=== PATIENT | male | born 1955 | race Caucasian/White ===

== ENCOUNTER 2025-01-16 11:26 | Emergency (ER) | payer OTHER ==
[2025-01-16] MEDS ORDERED: Lidocaine 1% (PF) 30 ML VIAL ONE (12:03)
[2025-01-16] MEDS ORDERED: Naproxen 500 MG TAB ONE (12:03)
== END 2025-01-16 13:18 | disposition home or self-care (01) ==
LOC: NAV ERS 11:26
DX: M70.21 Olecranon bursitis, right elbow (principal); I10 Essential (primary) hypertension
CPT/HCPCS: J2003